=== PATIENT | female | born 1955 | race Caucasian/White ===

== ENCOUNTER → 2021-11-08 16:03 | Outpatient (CLI) | payer MEDICARE, OTHER, SELFPAY ==
[2021-11-08 18:13] LABS: Cholesterol 257 mg/dL (140-199); HDL Cholesterol 77 mg/dL (40-60); LDL Cholesterol Calculated 157 mg/dL (<100); Triglycerides 116 mg/dL (35-150)
[2021-11-08 18:54] LABS: Free T3, Triiodothyronine Free 4.91 pg/mL (2.77-5.27); Free T4, Direct Thyroxine 0.07 ng/dL (0.78-2.19)
[2021-11-08 19:08] LABS: Thyroid Stimulating Hormone 0.741 uIU/mL (0.47-4.68)
== END ==
PROVIDERS: PCP Family Medicine; Referring Provider Family Medicine; Visit Provider Family Medicine
DX: E03.9 Hypothyroidism, unspecified (principal); E05.90 Thyrotoxicosis, unspecified without thyrotoxic crisis or storm; E78.2 Mixed hyperlipidemia; L56.8 Other specified acute skin changes due to ultraviolet radiation
CPT/HCPCS: 36415; 80061; 84439; 84443; 84481

== ENCOUNTER 2022-08-08 16:42 | Emergency (ER) | payer MEDICARE, OTHER, SELFPAY ==
[2022-08-08 17:11] VITALS: BP 142/62; PULSE 90; RESP 18; TEMP 36.7; O2SAT 98; BMI 19.1
[2022-08-08 18:31] LABS: Add Manual Diff / Slide Review NO; Basophils Absolute Auto 0 /uL (0-100); Basophils Percent Auto 0.6 % (0-2); Eosinophils Absolute Auto 300 /uL (0-450); Hematocrit 36.2 % (36-46); Hemoglobin 12.4 g/dL (12.0-16.0); Lymphocytes Absolute Auto 1200 /uL (1100-4500); Lymphocytes Percent Auto 31.3 % (25-40); Mean Corpuscular HGB Conc 34.3 % (30-36); Mean Corpuscular Hemoglobin 30.6 PG (26-34); Mean Corpuscular Volume 89.3 fL (80-100); Monocytes Absolute Auto 400 /uL (0-900); Neutrophils Absolute Auto 1900 /uL (1500-7000); Neutrophils Percent Auto 50.1 % (50-75); Platelet Count 172 X10^3/uL (150-400); Red Blood Cell Count 4.05 X10^6/uL (4.0-5.2); Red Cell Distribution Width 13.8 % (11.6-14.8); White Blood Cell Count 3.7 X10^3/uL (4.5-11.0)
[2022-08-08 18:45] LABS: Alanine Aminotransferase 41 IU/L (<35); Albumin 3.7 g/dL (3.5-5.0); Albumin Globulin Ratio 1.3 (1.0-2.8); Alkaline Phosphatase 45 U/L (38-126); Aspartate Aminotransferase 30 IU/L (14-36); BUN Creatinine Ratio 32.1 (6-22); Bilirubin Total 0.3 mg/dL (0.2-1.3); Blood Urea Nitrogen 17 mg/dL (7-17); Calcium 9.2 mg/dL (8.4-10.2); Carbon Dioxide 28 mmol/L (22-32); Chloride 105 mmol/L (98-107); Estimated Glomerular Filt Rate > 60 mL/min (>60); Globulin 2.9 g/dL (1.7-4.1); Glucose 92 mg/dL (80-110); HEMOLYSIS < 15 (0-50); Lipase 58 U/L (23-300); Potassium 4.1 mmol/L (3.4-5.1); Sodium 136 mmol/L (137-145); Total Protein 6.6 g/dL (6.3-8.2)
[2022-08-08 21:07] VITALS: BP 137/63; PULSE 81; RESP 18; TEMP 36.5; O2SAT 99
--- NOTE | 2022-08-08 21:37 | ED.GIBLEED ---
HPI - GI Bleed General Chief complaint: GI Bleed Stated complaint: Rectal bleeding, abd bloated Time Seen by Provider: 08/08/22 21:35 Source: patient Mode of arrival: Family Vehicle Limitations: no limitations History of Present Illness HPI Narrative: This is a 67-year-old female who presents with complaint of bright red rectal bleeding that has been intermittent. Patient denies abdominal back or flank pain. No fevers or chills. No nausea or vomiting. She states regular stools and that she is not been constipated. Patient denies any urinary symptoms. Patient did have a colonoscopy for diverticulitis but it was inadequate and was rescheduled after taking a month of antibiotics was told to have scope 3 months after that. Had to be rescheduled in his on September 07. Patient states she takes medication for thyroid. Patient states she did have a digital rectal exam and was told they did not see hemorrhoid at that time 2 weeks ago. This was with gastroenterology. Related Data Home Medications Medication Instructions Recorded Confirmed liothyronine PO 06/20/21 05/24/22 loratadine 10 mg tablet (Allergy 10 mg PO DAILY 06/20/21 05/24/22 Relief (loratadine)) patenal PO 06/20/21 05/24/22 Previous Rx's Medication Instructions Recorded olopatadine 0.1 % eye drops 1 drp EYE-BOTH ONCE PRN allergy 02/28/22 symptoms #5 mL tretinoin 0.025 % topical cream 1 applic topical BEDTIME #45 grams 02/28/22 estradiol 0.045 mg-levonorgestrel 1 patch transdermal QWEEK #12 ea 04/19/22 0.015 mg/24hr weekly transderm patch (Climara Pro) sodium,potassium,mag sulfates 17.5 See Rx Instructions PO .COMPLEX 05/24/22 gram-3.13 gram-1.6 gram oral soln #354 mL (Suprep Bowel Prep Kit) peg 3350-electrolytes 236 240 ml PO Q10M #4,000 mL 07/27/22 gram-22.74 gram-6.74 gram-5.86 gram solution (Golytely) Allergies Allergy/AdvReac Type Severity Reaction Status Date / Time Sulfa (Sulfonamide Allergy Severe Anaphylaxis Verified 08/08/22 18:30 Antibiotics) lidocaine Allergy Verified 08/08/22 17:18 carrots Allergy Severe Hives Uncoded 08/08/22 17:17 stone fruits Allergy Severe Hives Uncoded 08/08/22 17:17 UV radiation Allergy Severe Hives Uncoded 08/08/22 17:17 cellulose Allergy Swelling Uncoded 08/08/22 17:18 of Lip/Tongue/Throat Review of Systems Review of Systems ROS Unobtainable: All systems reviewed & are unremarkable except as noted in HPI and below Patient History Medical History Acute right-sided low back pain with right-sided sciatica Allergies (~1997) BRBPR (bright red blood per rectum) Diverticular disease (~1997) Hyperlipidemia, mixed Hyperthyroidism (~1997) Hypothyroidism (~1997) Iliotibial band syndrome, right leg Left flank pain, chronic Lumbar region somatic dysfunction Muscular deconditioning Pelvic somatic dysfunction Photosensitivity (~1997) Piriformis syndrome of right side Sacral region somatic dysfunction Segmental and somatic dysfunction of abdomen and other regions Somatic dysfunction of lower extremity Vision problem Surgical History Anesthesia Family History Father Stroke Mother Cancer Grandfather Chagas disease Grandmother Cancer Grandfather Cancer Grandmother Stroke Social History Smoking Status: Former smoker Smoking Status: Former smoker tobacco type: cigarettes alcohol intake frequency: 0-2 drinks per day Exam Narrative Exam Narrative: GENERAL: Alert and oriented x three, female in mild distress. HEENT: Head normocephalic, atraumatic, EOMI, pupils reactive, face symmetric, moist mucous membranes NECK: Supple, full range of motion CARDIOVASCULAR: Regular rate and rhythm without murmurs, rubs or gallops. RESPIRATORY: Breath sounds equal bilaterally, no wheezes rales or rhonchi. ABDOMEN: Soft, nontender. Normoactive bowel sounds all 4 quadrants. No guarding or rebound, rigidity, no mass, on digital rectal exam patient has small external hemorrhoid that is nontender. Not actively bleeding. No internal hemorrhoids or mass appreciated. : No CVA tenderness EXTREMITIES: Normal range of motion, no clubbing or edema. Neurovascularly intact NEUROLOGICAL: Cranial nerves II through XII grossly intact. Moving all extremities SKIN: Warm, dry, no petechiae, no rashes or lesions. Initial Vital Signs Initial Vital Signs: Vital Signs Temperature 98.1 F 08/08/22 17:11 Pulse Rate 90 08/08/22 17:11 Respiratory Rate 18 08/08/22 17:11 Blood Pressure 142/62 H 08/08/22 17:11 Pulse Oximetry 98 08/08/22 17:11 Oxygen Delivery Method Room Air 08/08/22 17:11 Course Orders Ordered: Discontinued Medications Ondansetron HCl (Ondansetron 4 Mg Odt) 4 mg PO NOW PRN PRN Reason: Nausea And Vomiting Ondansetron HCl (Ondansetron 4 Mg/2 Ml Inj) 4 mg IV NOW PRN PRN Reason: Nausea And Vomiting Vital Signs Vital signs: Vital Signs - 8 hr 08/08/22 21:07 Temperature 97.7 F Pulse Rate 81 Respiratory Rate 18 Blood Pressure 137/63 Pulse Oximetry 99 Oxygen Delivery Method Room Air MDM - GI Bleed Lab Data 08/08/22 18:20 08/08/22 18:20 Labs: Lab Results 08/08/22 08/08/22 Range/Units 18:20 18:20 WBC 3.7 L (4.5-11.0) X10^3/uL RBC 4.05 (4.0-5.2) X10^6/uL Hgb 12.4 (12.0-16.0) g/dL Hct 36.2 (36-46) % MCV 89.3 (80-100) fL MCH 30.6 (26-34) PG MCHC 34.3 (30-36) % RDW 13.8 (11.6-14.8) % Plt Count 172 (150-400) X10^3/uL Neut % (Auto) 50.1 (50-75) % Lymph % (Auto) 31.3 (25-40) % [place] % (Auto) 10.0 (3-14) % Eos % (Auto) 8.0 H (2-4) % Baso % (Auto) 0.6 (0-2) % Neut # (Auto) 1900 (7427-0807) /uL Lymph # (Auto) 1200 (3188-9259) /uL [place] # (Auto) 400 (0-900) /uL Eos # (Auto) 300 (0-450) /uL Baso # (Auto) 0 (0-100) /uL Sodium 136 L (137-145) mmol/L Potassium 4.1 (3.4-5.1) mmol/L Chloride 105 (98-107) mmol/L Carbon Dioxide 28 (22-32) mmol/L BUN 17 (7-17) mg/dL Creatinine 0.53 (0.52-1.04) mg/dL Estimated GFR > 60 (>60) mL/min BUN/Creatinine Ratio 32.1 H (6-22) Glucose 92 (80-110) mg/dL Calcium 9.2 (8.4-10.2) mg/dL Total Bilirubin 0.3 (0.2-1.3) mg/dL AST 30 (14-36) IU/L ALT 41 H (<35) IU/L Alkaline Phosphatase 45 (38-126) U/L Total Protein 6.6 (6.3-8.2) g/dL Albumin 3.7 (3.5-5.0) g/dL Globulin 2.9 (1.7-4.1) g/dL Albumin/Globulin Ratio 1.3 (1.0-2.8) Lipase 58 (23-300) U/L MDM Narrative Medical decision making narrative: 67-year-old female with rectal bleeding that has been persistent but intermittent. Was concerned as it occurred again today. She is scheduled for a colonoscopy on the 07 of September, she has a small external hemorrhoid which is likely source but encouraged to keep her colonoscopy. Labs are reassuring as well as vital signs with no other red flag symptoms. Discussed treatments and return precautions. Discharge Plan Departure Patient Disposition: Home Clinical Impression: Hemorrhoid, BRBPR (bright red blood per rectum) Instructions: DI for Hemorrhoids Activity Restrictions/Additional Instructions: Please follow-up at your scheduled colonoscopy on September 07. You do have a external hemorrhoid which may be causing some of your rectal bleeding but I still recommend you have your colonoscopy. You can use topical treatments such as tucks hemorrhoids pads, Sitz baths making sure eating plenty of fiber to have soft stools prevent worsening. Please return for fevers, new or worsening abdominal back or flank pain, persistent vomiting, increasing frequency or large amounts of bleeding, large clots, lightheadedness or passing or other new or concerning changes. Prescriptions: No Action tretinoin 0.025 % cream 1 applic topical BEDTIME Qty: 45 3RF olopatadine 0.1 % drops 1 drp EYE-BOTH ONCE PRN (Reason: allergy symptoms) Qty: 5 11RF Climara Pro 0.045-0.015 mg/24 hr patch weekly 1 patch transdermal QWEEK Qty: 12 3RF sodium,potassium,mag sulfates [Suprep Bowel Prep Kit] 17.5-3.13-1.6 gram recon soln See Rx Instructions PO .COMPLEX Qty: 354 0RF Rx Instructions: TAKE DIRECTED BY PHYSICIAN peg 3350-electrolytes [Golytely] 236-22.74-6.74 -5.86 gram recon soln 240 ml PO Q10M Qty: 4000 0RF Rx Instructions: take as directed by Physician liothyronine PO patenal PO loratadine [Allergy Relief (loratadine)] 10 mg tablet 10 mg PO DAILY Hold Instructions: not taking presently Referrals: Kimmie Bowling ARNP [Primary Care Provider] - Stand Alone Forms: Patient Portal/API
== END 2022-08-08 22:05 | disposition home or self-care (01) ==
PROVIDERS: Emergency Medicine; Emergency Provider Emergency Medicine; PCP Nurse Practitioner Family
DX: K62.5 Hemorrhage of anus and rectum (principal); K64.4 Residual hemorrhoidal skin tags
CPT/HCPCS: 36415; 80053; 83690; 85025; 99283

== ENCOUNTER → 2022-09-01 11:57 | Outpatient (CLI) | payer MEDICARE, OTHER, SELFPAY ==
--- NOTE | 2022-09-01 11:59 | DI.CT.S_ITS ---
PROCEDURE: CT ABDOMEN PELVIS W CON INDICATIONS: abdominal pain, history of diverticulitis TECHNIQUE: After the administration of oral and intravenous contrast, axial sections were acquired from the lung bases to the pubic symphysis. Coronal and sagittal reformats were performed. For radiation dose reduction, the following was used: automated exposure control, adjustment of mA and/or kV according to patient size. COMPARISON:[facility], CT, CT ABDOMEN PELVIS WITH CONTRAST, 01/11/2021, 16:09. FINDINGS: Image quality: Mild motion artifact Lower chest: Small hiatal hernia and nonspecific distal esophageal wall thickening Solid organs: Liver appears unremarkable gallbladder appears unremarkable. No pathologic dilation of the biliary tree or pancreatic duct. No splenomegaly. There is adrenal thickening without discrete nodularity. No hydronephrosis. Vessels and lymph nodes: Main portal vein is patent. Atherosclerotic calcifications. No abdominal aortic aneurysm. No pathologic lymph nodes by size criteria. Bowel and peritoneum: No evidence of bowel obstruction. There are colonic diverticula. Large rectal stool ball. Moderate inflammatory changes are seen at the rectosigmoid junction, without a drainable abscess. Significant distal large bowel diverticulosis. Body wall: Unremarkable Pelvis: Reproductive organs are not well evaluated on CT. There is borderline endometrial thickening measuring 5-6 mm. This is stable however from 2020 Bladder is unremarkable Bones: No acute or suspicious osseous finding. IMPRESSION: Moderate inflammatory changes consistent with rectosigmoid diverticulosis. Please correlate with age-appropriate colonoscopy results. No drainable abscess. Large rectal stool ball. Borderline endometrial thickening, also seen in 2020. Consider sampling if there is any history of postmenopausal bleeding Other findings as above. Dictated by: Ramon Sorensen M.D. on 09/01/2022 at 14:07 Approved by: Ramon Sorensen M.D. on 09/01/2022 at 14:13
== END ==
PROVIDERS: PCP Nurse Practitioner Family; Referring Provider Surgery; Visit Provider Surgery
DX: K57.90 Diverticulosis of intestine, part unspecified, without perforation or abscess without bleeding (principal); K44.9 Diaphragmatic hernia without obstruction or gangrene; K57.30 Diverticulosis of large intestine without perforation or abscess without bleeding
CPT/HCPCS: 74177

== ENCOUNTER 2022-09-07 11:53 | Day surgery (SDC) | payer MEDICARE, OTHER, SELFPAY ==
--- NOTE | 2022-09-07 | PATH_ITS ---
[facility] Accession Number: [id number] No. of containers..01 Tissue . 01 Material submitted: . rectum - RECTAL POLYP . 01 Diagnosis: Rectal Polyp: Hyperplastic polyp. V 09/13/2022 1312 Local . 01 Electronically signed: . Yemi Figueroa MD, PhD, Pathologist NPI- [id number] . 01 Gross description: . RECTAL POLYP: Received in formalin is 2 fragment(s) of bennett, soft tissue measuring 0.3 x 0.3 x 0.2 cm to 0.2 x 0.2 x 0.1 cm submitted entirely in 1 cassette(s) /[facility] 09/12/2022 1138 Local . 01 Pathologist provided ICD-10: K62.1 . 01 CPT . 813279 Specimen Comment: A courtesy copy of this report has been sent to [phone] Performed at: 01 [facility] [address] [place] [address], [place], [place] [id number] MD Gera Peters MD Phone: [phone]
[2022-09-07 12:16] VITALS: BMI 18.9
[2022-09-07 12:22] VITALS: BP 150/76; PULSE 90; RESP 16; TEMP 36.8; O2SAT 98
[2022-09-07] MEDS: LACTATED RINGERS 1,000 ML 42 ML IV (12:39)
--- NOTE | 2022-09-07 12:59 | PM.HP.1 ---
History of Present Illness History of Present Illness Date Patient Seen: 09/07/22 Time Patient Seen: 12:59 Chief complaint: Dx Colonoscopy Narrative: Morenita is here for her colonoscopy. Please see the prior office note for details. She was in the ER for rectal bleeding recently and a CT was performed which showed mild diverticulitis. She is worried about dehydration and weight loss. [facility] Medical History Acute right-sided low back pain with right-sided sciatica Allergies (~1997) BRBPR (bright red blood per rectum) Diverticular disease (~1997) Hyperlipidemia, mixed Hyperthyroidism (~1997) Hypothyroidism (~1997) Iliotibial band syndrome, right leg Left flank pain, chronic Lumbar region somatic dysfunction Muscular deconditioning Pelvic somatic dysfunction Photosensitivity (~1997) Piriformis syndrome of right side Sacral region somatic dysfunction Segmental and somatic dysfunction of abdomen and other regions Somatic dysfunction of lower extremity Vision problem Surgical History Anesthesia Family History Father Stroke Mother Cancer Grandfather Chagas disease Grandmother Cancer Grandfather Cancer Grandmother Stroke Social History household members: spouse Smoking Status: Former smoker alcohol intake: never Meds Home Medications and Allergies Home Medications Medication Instructions Recorded Confirmed Type loratadine 10 mg tablet (Allergy 10 mg PO DAILY 06/20/21 09/07/22 History Relief (loratadine)) patenal PO 06/20/21 05/24/22 History olopatadine 0.1 % eye drops 1 drp EYE-BOTH ONCE PRN allergy 02/28/22 09/07/22 Rx symptoms #5 mL tretinoin 0.025 % topical cream 1 applic topical BEDTIME #45 grams 02/28/22 05/24/22 Rx estradiol 0.045 mg-levonorgestrel 1 patch transdermal QWEEK #12 ea 04/19/22 09/07/22 Rx 0.015 mg/24hr weekly transderm patch (Climara Pro) sodium,potassium,mag sulfates 17.5 See Rx Instructions PO .COMPLEX 09/01/22 09/07/22 Rx gram-3.13 gram-1.6 gram oral soln #354 mL (Suprep Bowel Prep Kit) liothyronine 25 mcg tablet 25 mcg PO DAILY 09/07/22 09/07/22 History Allergies Allergy/AdvReac Type Severity Reaction Status Date / Time Sulfa (Sulfonamide Allergy Severe Diarrhea Verified 09/07/22 12:13 Antibiotics) lidocaine Allergy localized Verified 09/07/22 12:13 swelling carrots Allergy Severe Hives Uncoded 08/08/22 17:17 stone fruits Allergy Severe Hives Uncoded 08/08/22 17:17 UV radiation Allergy Severe Hives Uncoded 08/08/22 17:17 cellulose Allergy Swelling Uncoded 08/08/22 17:18 of Lip/Tongue/Throat Exam Vital Signs (past 8 hours): - 09/07/22 12:22 Temperature 98.2 F Pulse Rate 90 Respiratory Rate 16 Blood Pressure 150/76 H Pulse Oximetry 98 Oxygen Delivery Method Room Air Oxygen Delivery Method Room Air Const General: No acute distress Assessment & Plan Assessment and plan (1) Rectal bleeding: Status: Acute Plan We will perform a colonoscopy, possible hemorrhoid banding. We reviewed the risks and benefits and she would like to proceed.
--- NOTE | 2022-09-07 13:45 | PM.OP.COLON ---
Operative Date/Time/Diagnoses Date of procedure: 09/07/22 Time of procedure: 13:45 Pre-op diagnosis: Rectal bleeding Post-op diagnosis: same Procedure & Clinicians Study performed: Colonoscopy Same procedure as scheduled: Yes Surgeon: Shaggy Ahuja Procedure Notes Procedure in detail: Surgeon: Shaggy Ahuja MD Anesthesia: Anthony Cespedes CRNA Procedure: The patient was brought to the endoscopy suite, placed in left lateral decubitus position. The patient was connected to monitoring devices. A time-out was performed. Sedation was administered. Once the patient was adequately sedated, a digital rectal exam was performed and was normal. The scope was then inserted and advanced to the cecum where the appendiceal orifice was identified and photographed. The scope was then slowly withdrawn over greater than 6 minutes. The mucosa was thoroughly inspected. There was some mild inflammation in the sigmoid colon consistent with mild smoldering diverticulitis. There was a 4 mm polyp in the mid rectum removed with cold forceps. The scope was retroflexed in the rectum. There were internal hemorrhoids noted. No other abnormalities were seen. The scope was straightened and removed. Rubber-band ligation was performed to the left lateral hemorrhoid and the right anterior hemorrhoid columns. The patient was awakened and brought to recovery. Scope withdrawal time: 10 minutes Sedation time: 21 minutes EBL: 5 mL Findings: Mild internal hemorrhoids and a 4 mm rectal polyp Post-procedure Disposition: PACU
[2022-09-07 13:48] VITALS: BP 99/56; PULSE 78; RESP 17; TEMP 36.2; O2SAT 100
[2022-09-07 13:55] VITALS: BP 95/56; PULSE 68; RESP 12; O2SAT 96
[2022-09-07 13:59] VITALS: BP 106/56; PULSE 70; RESP 16; TEMP 36.3; O2SAT 99
[2022-09-07 14:00] VITALS: BP 112/60; PULSE 69; RESP 20; O2SAT 98
[2022-09-07 18:16] LABS: Add Manual Diff / Slide Review NO; Basophils Absolute Auto 0 /uL (0-100); Eosinophils Absolute Auto 200 /uL (0-450); Eosinophils Percent Auto 5.2 % (2-4); Hematocrit 35.5 % (36-46); Lymphocytes Absolute Auto 1100 /uL (1100-4500); Mean Corpuscular HGB Conc 33.9 % (30-36); Mean Corpuscular Hemoglobin 30.2 PG (26-34); Monocytes Absolute Auto 400 /uL (0-900); Monocytes Percent Auto 8.7 % (3-14); Neutrophils Absolute Auto 2800 /uL (1500-7000); Neutrophils Percent Auto 60.1 % (50-75); Platelet Count 221 X10^3/uL (150-400); Red Blood Cell Count 3.99 X10^6/uL (4.0-5.2); Red Cell Distribution Width 12.7 % (11.6-14.8); White Blood Cell Count 4.6 X10^3/uL (4.5-11.0)
[2022-09-07 18:19] LABS: Alanine Aminotransferase 35 IU/L (<35); Albumin 3.3 g/dL (3.5-5.0); Albumin Globulin Ratio 1.1 (1.0-2.8); Alkaline Phosphatase 51 U/L (38-126); Aspartate Aminotransferase 75 IU/L (14-36); BUN Creatinine Ratio 22.7 (6-22); Bilirubin Total 0.4 mg/dL (0.2-1.3); Blood Urea Nitrogen 10 mg/dL (7-17); Calcium 9.2 mg/dL (8.4-10.2); Carbon Dioxide 27 mmol/L (22-32); Chloride 103 mmol/L (98-107); Estimated Glomerular Filt Rate > 60 mL/min (>60); Glucose 86 mg/dL (80-110); HEMOLYSIS 47 (0-50); Potassium 4.3 mmol/L (3.4-5.1); Sodium 135 mmol/L (137-145); Total Protein 6.3 g/dL (6.3-8.2)
== END 2022-09-07 14:24 | disposition home or self-care (01) ==
PROVIDERS: PCP Nurse Practitioner Family; Referring Provider Surgery; Visit Provider Surgery
PROC: 0DJD8ZZ Inspection of Lower Intestinal Tract, Via Natural or Artificial Opening Endoscopic (ICD-10-PCS; CPT 45378; principal; 2022-09-07 13:00)
DX: D12.8 Benign neoplasm of rectum (principal); K57.32 Diverticulitis of large intestine without perforation or abscess without bleeding; K64.8 Other hemorrhoids; K62.5 Hemorrhage of anus and rectum; E03.9 Hypothyroidism, unspecified; Z87.891 Personal history of nicotine dependence
CPT/HCPCS: 45380; 36415; 80053; 85025; J2704